=== PATIENT | female | born 1980 | race American Indian/Alaskan Native ===

== ENCOUNTER 2023-02-17 07:42 | Outpatient (CLI) | payer OTHER ==
[~2023-02-17 07:42] MED LIST: PRENATAL TABLE1 EACH PO
== END 2023-02-17 07:56 | disposition home or self-care (01) ==
LOC: SONOGRAMA 07:42
DX: K76.0 Fatty (change of) liver, not elsewhere classified (principal); K21.9 Gastro-esophageal reflux disease without esophagitis; G47.31 Primary central sleep apnea